=== PATIENT | male | born 1985 | race Caucasian/White ===

== ENCOUNTER 2017-03-28 20:40 | Observation (INO) ==
[2017-03-28] MEDS ORDERED: *HR* LORazepam 2 MG/ML VIAL IVP ONE (20:49)
[2017-03-28] MEDS ORDERED: 0.9 % Sodium Chloride 1,000 ML IVC ONE (20:49)
--- NOTE | 2017-03-28 20:59 | Emergency Department Note ---
Disposition Clinical Impression: Methamphetamine abuse Altered mental status Qualifiers: Altered mental status type: disorientation Qualified Code(s): R41.0 - Disorientation, unspecified Disposition: Admitted As Inpatient Condition: Fair Referrals: NONE,PCP [Primary Care Provider] - Forms: ED Satisfaction Letter Altered Mental Status HPI - General Chief Complaint: ED Overdose Stated Complaint: possible OD Time Seen by Provider: 03/28/17 20:49 Source: patient, family Mode of arrival: private vehicle Limitations: no limitations Nursing Notes Reviewed: Yes Vital Signs Reviewed: Yes - History of Present Illness HPI Narrative: Patient has had several episodes of further last 3 days of drawing up with abnormal motion of his left arm with some slurring of speech. He states he has been in some headaches. Denies other visual changes, nausea or vomiting. Secondary chest pain shortness breath or palpitation. Denies any fall or injury. Denies any change in medication or stress. States he has on his normal medicines including Suboxone for history of opiate abuse. He states he takes an 8 mg strep and will splint it into 4 pieces to take throughout the day. He has had a previous episode of similar mental status change and dysfunction of the left arm. He was transferred emergently to [facility]. Had a negative CT at this facility as well as at [facility] and normal evaluation and labs. He was reportedly discharged the next day at his baseline status per family. They do not know of anything that has precipitated the return of this syndrome. There was some concern for drug use. He has remained alert throughout this period and he has not had incontinence. He has not bitten his tongue. He has not had history of previous stroke or seizure. MD complaint: altered mental status Onset (ago): day(s) Timing confirmed by: family member Pain Severity: mild Consistency of Symptoms: waxing and waning, getting worse Context: drug abuse, history of similar presentation Associated symptoms: Reports: chills, headaches, difficulty walking. Denies: chest pain, cough, diaphoresis, fever, loss of appetite, malaise, nausea/ vomiting, rash, seizure, shortness of breath, syncope, weakness, foul smelling urine, diarrhea, incontinence - Related Data Previous Rx's Medication Instructions Recorded EPINEPHrine [Epipen] 0.3 mg SQ ONCE #1 mls 03/18/16 Hydrocodone/Acetaminophen [Isabella 1 tab PO Q6H PRN #16 tab 07/31/16 5-325 Tablet] Allergies Allergy/AdvReac Type Severity Reaction Status Date / Time codeine Allergy Hives Verified 08/12/15 16:18 All systems ED: reviewed and negative except as stated. Past Medical History - Past Medical History Attestation: Yes The following information was validated with the patient. Source: patient, old records reviewed, nursing notes reviewed Medical history: Reports: no medical history Surgical history: Reports: other (Left orchiectomy) Psychiatric history: Reports: depression - Social History Smoking Status: Current every day smoker Smokeless Tobacco Status: No Alcohol use: Reports: none Drug use: Reports: opiates, IV Drug Use Physical Exam - General Limitations: no limitations General appearance: alert, anxious, in distress - Head Head exam: atraumatic, normocephalic, normal inspection - Eye Eye exam: Present: normal appearance, PERRL, EOMI. Absent: scleral icterus, conjunctival injection - ENT ENT exam: normal exam, normal oropharynx, mucous membranes moist - Neck Neck exam: Present: normal inspection, full ROM, trachea midline - Chest Chest inspection: Present: normal inspection, symmetric chest wall rise - Respiratory Respiratory exam: Present: normal lung sounds bilaterally. Absent: respiratory distress, wheezes, prolonged expiratory phase - Cardiovascular Cardiovascular exam: Present: regular rate, normal rhythm, normal heart sounds - Abdominal Exam Abdominal exam: Present: soft, Non-Tender, normal bowel sounds. Absent: tenderness, distention, guarding, rebound, rigidity - Expanded Upper Extremity Exam Shoulder exam: Present: normal inspection, full ROM. Absent: tenderness, swelling Arm exam: Present: normal inspection, full ROM. Absent: tenderness, swelling Elbow exam: Present: other (Right arm has an easy full range of motion. The left elbow is held semiflexed and he resists extension or flexion of it beyond about a 30 degree range of motion.) Forearm/Wrist exam: Present: other (Patient's left wrist is held in 90 degree flexion. He resisted extension of this. He will wiggle his fingers to command and to casualty underwriter my fingers.). Absent: swelling, tenderness over anatomical snuff box Hand exam: Present: normal inspection. Absent: swelling Vascular exam: Normal: capillary refill, radial pulse - Expanded Lower Extremity Exam Hip/Pelvis exam: Present: normal inspection, full ROM. Absent: tenderness, swelling Upper leg exam: Present: normal inspection, full ROM Knee exam: Present: normal inspection, full ROM. Absent: tenderness, swelling Lower leg exam: Present: normal inspection, full ROM Ankle exam: Present: normal inspection, full ROM. Absent: tenderness, swelling Foot/toe exam: Present: normal inspection, full ROM Neurovascular/Tendon exam: Present: normal capillary refill. Absent: motor deficit, sensory deficit, tendon deficit Gait: not tested/not observed - Back Exam Back exam: Present: normal inspection, full ROM. Absent: tenderness, vertebral tenderness - Neurological Exam Neurological exam: Present: alert, oriented X3, CN II-XII intact, other (Patient 's left arm is held semiflexed of the elbow and fully flex the wrist. He follows commands but has decreased range of motion. He does have limited but volitional control of it.) - Psychiatric Psychiatric exam: Present: agitated, anxious - Skin Skin exam: Present: warm, dry, intact, normal color. Absent: diaphoresis, pallor Course Course Narrative: 2219: The patient's evaluation is negative thus far. He has been able to urinate and has agreed to a catheter urine for the specimen. His father requested a crisis counselor to talk to him as he feels some of this may be anxiety and stress related. I crisis counselor is in the department and I have asked for her to see this patient to help coordinate likely outpatient care. The patient has been evaluated by crisis counselor and discussed then with Dr. Klein. He has outpatient drug treatment and will need observation for his altered mental status. He is quite sleepy after the Ativan that is improved with regard to any of his jerking arm motion. Vital Signs Temperature 98.4 F 03/28/17 20:42 Pulse Rate 105 03/28/17 20:42 Respiratory Rate 22 03/28/17 20:42 Blood Pressure 123/62 03/28/17 20:42 O2 Sat by Pulse Oximetry 100 03/28/17 20:42 Temperature 98.7 F 03/29/17 00:15 Pulse Rate 80 03/29/17 00:15 Respiratory Rate 16 03/29/17 00:15 Blood Pressure 101/50 03/29/17 00:15 O2 Sat by Pulse Oximetry 98 03/29/17 00:15 Oxygen Delivery Oxygen Delivery Room Air Altered Mental Status - Differential Diagnosis Likely: alcoholic intoxication, altered mental status, delirium, hypoglycemia, hyponatremia, psychiatric disease, substance use - Lab Data Lab results reviewed: Yes I reviewed the patient's lab results. Result diagrams: 03/28/17 21:06 03/28/17 21:06 Lab Results 03/28/17 03/28/17 03/28/17 Range/Units 20:57 21:06 21:06 WBC 7.9 (4.3-11.1) K/mcL RBC 4.59 (4.19-5.50) M/mcL Hgb 13.4 (12.9-16.9) g/dL Hct 38.0 (37.5-50.1) % MCV 82.8 L (83.0-100.0) fL MCH 29.2 (28.0-33.3) pg MCHC 35.3 (31.6-35.5) g/dL RDW 12.2 (11.5-14.5) % Plt Count 237 (140-400) K/mcL MPV 9.3 L (9.4-12.4) fL Immature Gran % 0.1 (0-4) % Seg Neutrophils % 40.5 % Lymphocytes % 47.6 % Monocytes % 10.0 % Eosinophils % 1.3 % Basophils % 0.5 % Neutrophils # 3.2 (1.6-8.9) K/mcL Lymphocytes # 3.8 (0.6-4.6) K/mcL Monocytes # 0.8 (0.0-1.3) K/mcL Eosinophils # 0.1 (0.0-0.6) K/mcL Basophils # 0.0 (0.0-0.2) K/mcL PT 12.4 H (9.4-12.1) Seconds INR 1.1 APTT 29.9 (26.0-36.0) Seconds Sodium (136-145) mEq/L Potassium (3.5-4.5) mEq/L Chloride (98-109) mEq/L Carbon Dioxide (19-29) mEq/L BUN (8-26) mg/dL Creatinine (0.72-1.25) mg/dL Est GFR ( Amer) (> 60) Est GFR (Non-Af Amer) (> 60) BUN/Creatinine Ratio (6-26) Glucose (70-99) mg/dL POC Glucose 104 H (58-89) Calculated Osmolality (280-300) Calcium (8.6-10.8) mg/dL Total Bilirubin (0.2-1.2) mg/dL Direct Bilirubin (0.0-0.5) mg/dL Indirect Bilirubin (0.0-1.2) mg/dL AST (5-34) Units/L ALT (0-55) Units/L Alkaline Phosphatase (38-126) Units/L Serum Total Protein (6.0-8.3) g/dL Albumin (3.5-5.0) g/dL Globulin (2.4-3.5) g/dL Albumin/Globulin Ratio (1.1-2.2) Urine Color (Yellow) Urine Clarity (Clear) Urine pH (5.0-8.0) pH Units Ur Specific Newberry (1.010-1.025) Urine Protein (Neg-Trace) mg/dL Urine Glucose (UA) (Normal) mg/dL Urine Ketones (Negative) mg/dL Urine Blood (Negative) Urine Nitrite (Negative) Urine Bilirubin (Negative) Urine Urobilinogen (Normal) mg/dL Ur Leukocyte Esterase (Negative) Urine Microscopic RBC (0-3) per hpf Amorphous Sediment (Few) Ur Culture Indicated? (NO) Urine Opiates Screen (Yvdrha=165) ng/mL Ur Oxycodone Screen (Cutoff= 100) ng/mL Ur Barbiturates Screen (Vtbaqo=493) ng/mL Ur Phencyclidine Scrn (Cutoff=25) ng/mL Ur Amphetamines Screen (Dnajuk=0672) ng/mL U Benzodiazepines Scrn (Oobozp=043) ng/mL Urine Cocaine Screen (Cutoff= 300) ng/mL U Marijuana (THC) Screen (Cutoff = 50) ng/mL Ethyl Alcohol (0-10) mg/dL 03/28/17 03/28/17 03/28/17 Range/Units 21:06 22:34 22:34 WBC (4.3-11.1) K/mcL RBC (4.19-5.50) M/mcL Hgb (12.9-16.9) g/dL Hct (37.5-50.1) % MCV (83.0-100.0) fL MCH (28.0-33.3) pg MCHC (31.6-35.5) g/dL RDW (11.5-14.5) % Plt Count (140-400) K/mcL MPV (9.4-12.4) fL Immature Gran % (0-4) % Seg Neutrophils % % Lymphocytes % % Monocytes % % Eosinophils % % Basophils % % Neutrophils # (1.6-8.9) K/mcL Lymphocytes # (0.6-4.6) K/mcL Monocytes # (0.0-1.3) K/mcL Eosinophils # (0.0-0.6) K/mcL Basophils # (0.0-0.2) K/mcL PT (9.4-12.1) Seconds INR APTT (26.0-36.0) Seconds Sodium 142 (136-145) mEq/L Potassium 4.0 (3.5-4.5) mEq/L Chloride 105 (98-109) mEq/L Carbon Dioxide 25 (19-29) mEq/L BUN 24 (8-26) mg/dL Creatinine 1.00 (0.72-1.25) mg/dL Est GFR ( Amer) > 60 (> 60) Est GFR (Non-Af Amer) > 60 (> 60) BUN/Creatinine Ratio 24 (6-26) Glucose 102 H (70-99) mg/dL POC Glucose (58-89) Calculated Osmolality 298 (280-300) Calcium 9.4 (8.6-10.8) mg/dL Total Bilirubin 0.5 (0.2-1.2) mg/dL Direct Bilirubin 0.3 (0.0-0.5) mg/dL Indirect Bilirubin 0.2 (0.0-1.2) mg/dL AST 24 (5-34) Units/L ALT 17 (0-55) Units/L Alkaline Phosphatase 101 (38-126) Units/L Serum Total Protein 7.3 (6.0-8.3) g/dL Albumin 3.6 (3.5-5.0) g/dL Globulin 3.7 H (2.4-3.5) g/dL Albumin/Globulin Ratio 1.0 L (1.1-2.2) Urine Color Yellow (Yellow) Urine Clarity Clear (Clear) Urine pH 7.0 (5.0-8.0) pH Units Ur Specific Newberry 1.020 (1.010-1.025) Urine Protein Negative (Neg-Trace) mg/dL Urine Glucose (UA) Normal (Normal) mg/dL Urine Ketones Negative (Negative) mg/dL Urine Blood Trace-intact H (Negative) Urine Nitrite Negative (Negative) Urine Bilirubin Negative (Negative) Urine Urobilinogen Normal (Normal) mg/dL Ur Leukocyte Esterase Negative (Negative) Urine Microscopic RBC 3-5 H (0-3) per hpf Amorphous Sediment Moderate H (Few) Ur Culture Indicated? NO (NO) Urine Opiates Screen Negative (Vpbrdu=614) ng/mL Ur Oxycodone Screen Negative (Cutoff= 100) ng/mL Ur Barbiturates Screen Negative (Isobua=829) ng/mL Ur Phencyclidine Scrn Negative (Cutoff=25) ng/mL Ur Amphetamines Screen Positive H (Thajpt=4595) ng/mL U Benzodiazepines Scrn Negative (Ajneho=661) ng/mL Urine Cocaine Screen Negative (Cutoff= 300) ng/mL U Marijuana (THC) Screen Negative (Cutoff = 50) ng/mL Ethyl Alcohol < 10 (0-10) mg/dL - Radiology Data Radiology results reviewed: Yes I reviewed the patient's radiology results. CT head is performed. This is reviewed on bone and soft tissue windows. There is no evidence for acute intracranial bleed, shift, mass or edema. Mastoids and sinuses appear normal. There is no fracture evident. This is on my interpretation. Impressions Head CT 03/28/17 20:51 IMPRESSION: No acute intracranial abnormality. D/ / Jitendra Chilel MD / Jitendra Chilel MD Interpreting Provider: Jitendra Chilel MD Checklist - LKW: 3-4.5 hrs Add. Warnings/Precautions Patient/family understanding: The patient/family members have been counseled and understood the risk, benefit , and alternatives of treatment. Critical Care Time Critical Care Time: Yes Total Critical Care Time: 45 Attestation: As this patient did present with signs and symptoms of potential life- threatening illness requiring my urgent intervention, total critical care time in this patient's care has been 45 minutes, not withstanding separately reportable procedures.
[2017-03-28 21:18] LABS: Basophils % 0.5 %; Eosinophils # 0.1 K/mcL (0.0-0.6); Eosinophils % 1.3 %; Hemoglobin 13.4 g/dL (12.9-16.9); Immature Granulocytes % 0.1 % (0-4); Lymphocytes # 3.8 K/mcL (0.6-4.6); Lymphocytes % 47.6 %; Mean Corpuscular HGB Conc 35.3 g/dL (31.6-35.5); Mean Corpuscular Hemoglobin 29.2 pg (28.0-33.3); Mean Corpuscular Volume 82.8 fL (83.0-100.0); Mean Platelet Volume 9.3 fL (9.4-12.4); Monocytes # 0.8 K/mcL (0.0-1.3); Neutrophils # 3.2 K/mcL (1.6-8.9); Platelet Count 237 K/mcL (140-400); Red Blood Count 4.59 M/mcL (4.19-5.50); Red Cell Distribution Width 12.2 % (11.5-14.5); Segmented Neutrophils % 40.5 %
[2017-03-28 21:25] LABS: INR 1.1; Prothrombin Time 12.4 Seconds (9.4-12.1)
[2017-03-28 21:28] LABS: Activated Partial Thrombo Time 29.9 Seconds (26.0-36.0)
[2017-03-28 21:37] LABS: Alanine Aminotransferase 17 Units/L (0-55); Albumin 3.6 g/dL (3.5-5.0); Alkaline Phosphatase 101 Units/L (38-126); Aspartate Amino Transferase 24 Units/L (5-34); BUN/Creatinine Ratio 24 (6-26); Bilirubin,Direct 0.3 mg/dL (0.0-0.5); Bilirubin,Indirect 0.2 mg/dL (0.0-1.2); Bilirubin,Total 0.5 mg/dL (0.2-1.2); Blood Urea Nitrogen 24 mg/dL (8-26); Calcium 9.4 mg/dL (8.6-10.8); Carbon Dioxide 25 mEq/L (19-29); Chloride 105 mEq/L (98-109); Ethanol < 10 mg/dL (0-10); Globulin 3.7 g/dL (2.4-3.5); Glucose 102 mg/dL (70-99); Osmolality,Calculated 298 (280-300); Sodium 142 mEq/L (136-145); Total Protein 7.3 g/dL (6.0-8.3); eGFR For African Americans > 60 (> 60); eGFR For Non-African Americans > 60 (> 60)
[2017-03-28 23:45] LABS: Bilirubin,Urine Negative (Negative); Blood,Urine Trace-intact (Negative); Clarity,Urine Clear (Clear); Color,Urine Yellow (Yellow); Glucose,Urine (UA) Normal (Normal); Ketones,Urine Negative (Negative); Leukocyte Esterase,Urine Negative (Negative); Nitrite,Urine Negative (Negative); Protein,Urine Negative (Neg-Trace); Urobilinogen,Urine Normal (Normal)
[2017-03-28 23:49] LABS: Amorphous Sediment,Urine Moderate (Few)
[2017-03-28 23:58] LABS: Amphetamine Screen,Urine Positive ng/mL (Cutoff=1000); Barbiturate Screen,Urine Negative ng/mL (Cutoff=200); Benzodiazepines Screen,Urine Negative ng/mL (Cutoff=200); Cannabinoid Screen,Urine Negative ng/mL (Cutoff = 50); Cocaine Screen,Urine Negative ng/mL (Cutoff= 300); Opiate Screen,Urine Negative ng/mL (Cutoff=300); Phencyclidine Screen,Urine Negative ng/mL (Cutoff=25)
[2017-03-29] MEDS ORDERED: Ondansetron 4 MG/2 ML VIAL IVP PRN (02:38)
[2017-03-29] MEDS ORDERED: Naloxone 0.4 MG/ML INJ IVP PRN (02:38)
[2017-03-29] MEDS: 0.9 % Sodium Chloride 1,000 ML IVC SCH ×2 (06:17→19:09)
[2017-03-29] MEDS ORDERED: Aspirin 325 MG TABLET PO ONE (10:58)
--- NOTE | 2017-03-29 11:05 | Internal Med History&Physical ---
Date of Encounter: 03/29/17 Time of Encounter: 10:15 Assessment and Plan (1) Left hemiparesis Current visit: Yes Status: Acute Head CT in emergency room was unremarkable. Since he still has residual neurologic deficit I will send him for MRI of the head.. He will also have carotid Doppler studies done. He will be given aspirin. (2) Weight loss Current visit: Yes Status: Acute We will check TSH. Suspect primarily due to drug abuse. (3) Hepatitis C Current visit: Yes Status: Chronic Testing 08/12/2015 showed hepatitis C antibody-positive with genotype 1A. He has not received treatment Qualifiers: Viral hepatitis chronicity: unspecified Hepatic coma status: without hepatic coma Qualified Code(s): B19.20 - Unspecified viral hepatitis C without hepatic coma Internal Medicine - H&P: HPI Chief complaint: Left sided weakness Admitted From: Home Plans for Post Hospital Care: Home History of present illness: Mr. Rae is a 31 year old male who came to emergency room after developing a second episode of left leg and arm weakness and left face numbness the day of admission. The first episode lasted approximately 15 minutes and occurred while at rest. It resolved but symptoms returned after approximately 4 hours in a similar fashion. After symptoms were present for over an hour he decided to come to emergency room. He was evaluated and admitted to [facility] floor for ongoing care needs. He denies previous similar episodes. He has been diagnosed with "headaches" but denied having a headache with either of the episodes of the day of admission. He denies past strokes or seizures. He states he has had "head trauma" in the past. Head CT and emergency room showed no acute pathology. Past Med Surg Social Fam HX - Past Medical History Medical history: no medical history Psychiatric history: depression - Past Surgical History Surgical History: other - Social History Smoking Status: Current every day smoker Packs per day: 1 Smokeless Tobacco Status: No Alcohol use: none Drug use: opiates, IV Drug Use Internal Medicine - H&P: Meds EPINEPHrine [Epipen] 0.3 mg SQ ONCE #1 mls 03/18/16 [Rx] Hydrocodone/Acetaminophen [Crumpton 5-325 Tablet] 1 tab PO Q6H PRN #16 tab [Rx] Allergies codeine Allergy (Verified 08/12/15 16:18) Hives All Systems PM: A 10-system review of systems was performed and is negative for pertinent findings except as documented above in the HPI. Review of systems: Gen.: He states his weight has decreased approximately 40 pounds in the past year, unintentionally. Cardiovascular: He denies MA hypertension heart failure angina DVT or pulmonary embolus Respiratory: He has smoked since age 15 up to 1-1/2 packs per day. He denies chronic lung disease and does not use home oxygen GI: He has history of hepatitis C diagnosed 2015. He denies other disorders of his liver gallbladder or exocrine pancreas : He denies hematuria dysuria or kidney stones. He had left testicular removal several years ago. Neurologic: As per history of present illness Endocrine: Denies diabetes thyroid disease or hyperlipidemia Hematology/oncology: He denies blood disorders cancers or anemia Psychiatric: He has anxiety and depression. He admits using methamphetamines with most recent usage approximately 1 week ago. He also uses Suboxone. These are purchased on the street. He denies alcohol use. Musk skeletal: Denies arthritis gout or other bone joint or muscle disorders. - Constitutional Vitals: Temp Pulse Resp BP Pulse Ox 98.9 F 72 18 102/64 98 03/29/17 06:27 03/29/17 06:27 03/29/17 06:27 03/29/17 06:27 03/29/17 06:27 Exam: Gen.: He is a well-developed lean male who appears in no severe distress at present time HEENT: Head is atraumatic and was cephalic. Eyes: EOMI. There is no scleral icterus. Mouth: Mucosa is moist. Neck: There is no thyromegaly or adenopathy noted. Heart: Regular without murmurs gallops or ectopics Lungs: No wheezes or crackles are heard. Abdomen: Soft and nontender. No masses or guarding noted. Exam is limited because he is in the seated position. Extremities: There is no cyanosis edema or clubbing noted. Dorsalis pedis and posttibial pulses are trace to 1+ palpable bilaterally. His feet are warm to touch. Neurologic: Mental status: He is talkative and a good historian. Cranial nerves : Smile is symmetric. Forehead wrinkles bilaterally. Tongue protrudes midline. EOMI. Motor: There is no pronator drift. Ankle and knee flexion and extension strength against resistance is 5 over 5 on the right and 4+ over 5 on the left. Babinski testing shows downgoing toes bilaterally. Cerebellar: finger to nose intact bilaterally. Skin: Warm and dry. He has multiple tattoos on his arms. Internal Med - H&P Results - Labs CBC & Chem 7: 03/28/17 21:06 03/28/17 21:06
[2017-03-29] MEDS ORDERED: Nicotine 21 MG PATCH.TD24 TD SCH (15:15)
[2017-03-29 18:52] VITALS: BP 109/70
--- NOTE | 2017-03-30 09:24 | Discharge Summary ---
Date of Encounter: 03/30/17 Time of Encounter: 09:15 - Discharge Diagnosis (1) Left hemiparesis Priority: Primary Status: Acute (2) Weight loss Priority: Secondary Status: Acute (3) Hepatitis C Priority: Secondary Status: Chronic Qualifiers: Viral hepatitis chronicity: unspecified Hepatic coma status: without hepatic coma Qualified Code(s): B19.20 - Unspecified viral hepatitis C without hepatic coma - Discharge Medications Home Medications: EPINEPHrine [Epipen] 0.3 mg SQ ONCE #1 mls 03/18/16 [Rx] Hydrocodone/Acetaminophen [Pheba 5-325 Tablet] 1 tab PO Q6H PRN #16 tab [Rx] Allergies/Adverse Reactions: Allergies codeine Allergy (Verified 08/12/15 16:18) Hives Procedures/tests Complete & Pending: Procedures Performed prior 72 hours Category Date Time Status MR head/brain wo con [MR] Routine MRI 03/29/17 10:59 Completed EV carotid duplex imaging BI Routine Y 03/29/17 10:54 Completed Date of admission: 03/29/17 01:05 Primary care physician: PCP NONE Consults: 03/29/17 03:26 Consult to Nutrition [CONS] Routine Comment: Consulting Provider: NUTRITION Reason for Dietary Consult: MST Score - Patient Status Disposition: Left Against Medical Advice Condition: Fair - Discharge Instructions Follow Up With: NONE,PCP [Primary Care Provider] - 1 week Hospital course: Mr. Rae is a 31 year old male who came to emergency room after developing a second episode of left leg and arm weakness and left face numbness the day of admission. The first episode lasted approximately 15 minutes and occurred while at rest. It resolved but symptoms returned after approximately 4 hours in a similar fashion. After symptoms were present for over an hour he decided to come to emergency room. He was evaluated and admitted to [facility] for ongoing care needs. Initial orders were written by the emergency room physician. I saw him on March 29 and performed the history and physical. When I saw him he had weakness in his left leg. I gave him aspirin 325 mg and ordered a MRI of the head and carotid Doppler studies. Labs were ordered to be drawn the morning of March 30 including cryoglobulins and ESR. The MRI showed no acute abnormalities. Carotid Doppler showed unremarkable findings. Shortly before midnight on February 26 staff noted the patient missing from his room. A thorough search was made without locating the patient. Security was notified and review of security film showed him the hospital premises approximately 2300 in a private vehicle. The [employer] Department was notified since IV access was in place when he left the hospital. - Time Spent with Patient Total time spent providing and/or coordinating discharge services: - Constitutional Vitals: Temp Pulse Resp BP Pulse Ox 97.6 F 80 16 109/70 99 03/29/17 18:51 03/29/17 18:51 03/29/17 18:51 03/29/17 18:51 03/29/17 18:51
--- NOTE | 2017-04-01 14:55 | Carotid Imaging Report ---
Carotid Duplex Patient Name:Alejandro Rae Order Number:[id number] Procedure Date:03/29/2017 Date:1985Age:31 yrs Gender:Male Lt BP:125 / 70 mmHg Rt.BP:130 / 70 mmHgHeart Rate: Location:[facility] Room #: [address] Eyeglass Lens Generator:WHITNEY TorresT, RDCS Referring MD:Mitch Klein MD surgical rn:None Reading MD:Ted Tran MD , FACS Primary Indications:left hemiparesis Risk Factors Yes/No Hypertension No Diabetes No Hypercholesterolemia No Smoking Current Yes Hx of CVA No Impressions: Findings: Bilateral carotid systems are essentially normal. Findings Carotid Duplex: Gill scale imaging combined with Doppler flow analysis suggests normal findings bilaterally. Right: The right proximal common carotid artery has a PSV of 71 cm/s and a EDV of 19 cm/s. The right mid common carotid artery has a PSV of 74 cm/s and a EDV of 22 cm/s. The right distal common carotid artery has a PSV of 63 cm/s and a EDV of 24 cm/s. The right bifurcation has a PSV of 52 cm/s and a EDV of 20 cm/s. The right proximal internal carotid artery has a PSV of 71 cm/s and a EDV of 22 cm/s. The right mid internal carotid artery has a PSV of 65 cm/s and a EDV of 26 cm/s. The right distal internal carotid artery has a PSV of 48 cm/s and a EDV of 19 cm/s. The right eca has a PSV of 71 cm/s and a EDV of 19 cm/s. The right vertebral artery has a PSV of 51 cm/s and a EDV of 20 cm/s. Left: The left proximal common carotid artery has a PSV of 74 cm/s and a EDV of 22 cm/s. The left mid common carotid artery has a PSV of 81 cm/s and a EDV of 26 cm/s. The left distal common carotid artery has a PSV of 72 cm/s and a EDV of 28 cm/s. The left bifurcation has a PSV of 72 cm/s and a EDV of 27 cm/s. The left proximal internal carotid artery has a PSV of 58 cm/s and a EDV of 22 cm/s. The left mid internal carotid artery has a PSV of 75 cm/s and a EDV of 33 cm/s. The left distal internal carotid artery has a PSV of 72 cm/s and a EDV of 32 cm/s. The left eca has a PSV of 69 cm/s and a EDV of 14 cm/s. The left vertebral artery has a PSV of 40 cm/s and a EDV of 16 cm/s. Carotid Results Right PSV EDV Assessment Proximal CCA 71 19 Mid CCA 74 22 Distal CCA 63 24 Bifurcation 52 20 Proximal ICA 71 22 Mid ICA 65 26 Distal ICA 48 19 ECA 71 19 Vertebral Artery 51 20 Left PSV EDV Assessment Proximal CCA 74 22 Mid CCA 81 26 Distal CCA 72 28 Bifurcation 72 27 Proximal ICA 58 22 Mid ICA 75 33 Distal ICA 72 32 ECA 69 14 Vertebral Artery 40 16 Ratio's Updated by Ted Tran MD, FACS on 03/29/2017 6:35:43 PM Ted Tran MD electronically signed on 03/29/2017 6:36:04 PM with status of Final
== END 2017-03-30 00:20 | disposition left against medical advice (07) ==
LOC: EMEROOPIK 20:40 → INPPIK 20:40
PROVIDERS: ADMIT Internal Medicine; ATTEND Internal Medicine